=== PATIENT | male | born 1975 | race Hispanic/Latino ===

== ENCOUNTER 2020-09-16 04:49 | Inpatient (IN) | payer OTHER ==
[2020-09-16] VITALS (16 sets, daily range): BP systolic 100–135; BP diastolic 58–84
[~2020-09-16] VITALS: Ht 167.6 cm; Wt 92.1 kg
[2020-09-16] MEDS ORDERED: PANTOPRAZOLE 40 MG/VIAL IV SCH (05:30)
[2020-09-16] MEDS ORDERED: FAMOTIDINE/PF 20 MG/2 ML VIAL IV SCH (05:30)
[2020-09-16 06:05] LABS: ABG BASE EXCESS -0.1 mmol/L (-2.0-3.0); ABG HCO3 23.2 mmol/L (21.0-28.0); ABG OXYGEN SATURATION 95.3 % (95.0-99.0); ABG PCO2 34 mmHg (35-48)
[2020-09-16 06:26] LABS: BASOPHILS % (AUTO) 1.1 % (0.0-5.0); LYMPHOCYTES % (AUTO) 17.3 % (21.0-51.0); MEAN CORPUSCULAR HEMOGLOBIN 29.4 pg (27.0-33.0); MEAN CORPUSCULAR HGB CONC 33.7 g/dL (32.0-36.0); MEAN CORPUSCULAR VOLUME 87.4 fL (79-99); MONOCYTES % (AUTO) 7.2 % (3.0-13.0); NEUTROPHILS % (AUTO) 73.8 % (40.0-77.0); PLATELET COUNT (AUTO) 177 K/uL (130-400); RED BLOOD CELL COUNT(AUTO) 4.35 MIL/uL (4.50-6.20); RED CELL DISTRIBUTION WIDTH 13.5 % (11.0-15.5); WHITE BLOOD COUNT (AUTO) 5.4 K/uL (4.8-10.8)
[2020-09-16 06:45] LABS: ALBUMIN 3.4 g/dL (3.5-5.0); BILIRUBIN,DIRECT 0.1 mg/dL (0.0-0.3); BILIRUBIN,TOTAL 0.5 mg/dL (0.2-1.0); CREATININE 0.9 mg/dL (0.5-1.5); POTASSIUM 3.3 mmol/L (3.5-5.1); TOTAL PROTEIN, SERUM 7.4 g/dL (6.0-8.3)
[2020-09-16 07:32] LABS: ERYTHROCYTE SEDIMENTATION RATE 27 MM/HR (0-15)
[2020-09-16] MEDS ORDERED: CEFTRIAXONE SODIUM 1 GM IVP SCH (07:45)
[2020-09-16] MEDS ORDERED: AZITHROMYCIN 500MG+NS 250ML 250 ML IV SCH (07:45)
[2020-09-16] MEDS ORDERED: ACETAMINOPHEN 325 MG TAB PO PRN ×2 (08:15)
[2020-09-16] MEDS ORDERED: LACTULOSE 20 GM/30 ML UDCUP PO PRN (08:15)
[2020-09-16] MEDS ORDERED: ONDANSETRON HCL 4 MG/2 ML VIAL IV PRN (08:15)
[2020-09-16] MEDS ORDERED: ERGOCALCIFEROL (VITAMIN D2) 50,000 UNIT CAPSULE PO SCH (08:25)
[2020-09-16] MEDS ORDERED: PANTOPRAZOLE SODIUM 40 MG TABLET.DR PO SCH (08:26)
[2020-09-16] MEDS ORDERED: DOXYCYCLINE 100MG+NS 250ML IV SCH (08:30)
[2020-09-16] MEDS ORDERED: ALBUTEROL INHALER 90MCG/INH IH PRN (08:30)
[2020-09-16] MEDS: CEFTRIAXONE SODIUM 1 GM IVP SCH ×2 (08:30→19:39)
[2020-09-16] MEDS ORDERED: DEXAMETHASONE SOD PHOSPHATE 4 MG/ML 1ML VIAL IVP SCH (08:30)
[2020-09-16 08:36] LABS: CHOLESTEROL 136 mg/dL (<200); HDL CHOLESTEROL 34 mg/dL (29-71); LDL DIRECT 90 mg/dL (0-99); TRIGLYCERIDES 121 mg/dL (30-200)
[2020-09-16] MEDS ORDERED: ASCORBIC ACID 500 MG TAB PO SCH (09:00)
[2020-09-16] MEDS ORDERED: ZINC SULFATE 220 CAPSULE PO SCH (09:00)
[2020-09-16] MEDS ORDERED: ENOXAPARIN SODIUM 40 MG/0.4 ML SYRINGE SQ SCH (09:00)
[2020-09-16] MEDS ORDERED: SODIUM CHLORIDE 0.9% 250 ML IV SCH (10:00)
[2020-09-16] MEDS ORDERED: DOXYCYCLINE 100MG IVPB (VIAL) IV SCH (10:00)
[2020-09-16] MEDS ORDERED: DOXYCYCLINE 100MG+NS 250ML 250 ML IV SCH (11:10)
[2020-09-16] MEDS ORDERED: KCL 20 MEQ ERTAB PO PRN (12:00)
[2020-09-16] MEDS ORDERED: POTASSIUM CHLORIDE 10MEQ/100ML 100 ML IV PRN (12:00)
[2020-09-16] MEDS ORDERED: POTASSIUM CHLORIDE 10% ELIXIR 20 MEQ/15 ML UDCUP PO PRN (12:00)
[2020-09-16] MEDS ORDERED: LIDOCAINE HCL-MPF 1% 2ML VIAL IV PRN (12:00)
[2020-09-16] MEDS: PHARMACY COMMUNICATION**REMDESIVIR ORDER MISC SCH (13:00)
[2020-09-16 17:59] LABS: HEMATOCRIT 38.8 % (42-54)
[2020-09-16] MEDS: PANTOPRAZOLE 40 MG/VIAL IVP SCH (19:39)
[2020-09-16] MEDS: GUAIFENESIN-DM 200/20 MG 10 ML PO PRN (22:51)
[2020-09-17] VITALS (9 sets, daily range): BP systolic 93–109; BP diastolic 52–65
[2020-09-17 04:43] LABS: LYMPHOCYTES % (AUTO) 26.5 % (21.0-51.0); MEAN CORPUSCULAR HEMOGLOBIN 29.2 pg (27.0-33.0); MEAN CORPUSCULAR HGB CONC 32.8 g/dL (32.0-36.0); MEAN CORPUSCULAR VOLUME 89.3 fL (79-99); MONOCYTES % (AUTO) 12.6 % (3.0-13.0); NEUTROPHILS % (AUTO) 60.4 % (40.0-77.0); PLATELET COUNT (AUTO) 226 K/uL (130-400); RED BLOOD CELL COUNT(AUTO) 4.48 MIL/uL (4.50-6.20); RED CELL DISTRIBUTION WIDTH 13.5 % (11.0-15.5); WHITE BLOOD COUNT (AUTO) 3.8 K/uL (4.8-10.8)
[2020-09-17 05:07] LABS: ALBUMIN 3.4 g/dL (3.5-5.0); BILIRUBIN,TOTAL 0.5 mg/dL (0.2-1.0); CRP QUANTITATIVE 53.4 mg/L (0.00-9.0); MAGNESIUM 2.3 mg/dL (1.80-2.40); POTASSIUM 3.7 mmol/L (3.5-5.1); TOTAL PROTEIN, SERUM 7.6 g/dL (6.0-8.3)
[2020-09-17] MEDS: PHARMACY COMMUNICATION MISC SCH ×3 (08:15→20:15)
[2020-09-17] MEDS: PANTOPRAZOLE 40 MG/VIAL IVP SCH ×2 (08:37→20:17)
[2020-09-17] MEDS: CEFTRIAXONE SODIUM 1 GM IVP SCH (08:37)
[2020-09-17] MEDS: PHARMACY COMMUNICATION**REMDESIVIR ORDER MISC SCH (13:00)
[2020-09-17] MEDS ORDERED: ACETAMINOPHEN 325 MG TAB PO PRN (15:45)
[2020-09-17] MEDS: GUAIFENESIN-DM 200/20 MG 10 ML PO PRN (15:59)
[2020-09-17] MEDS ORDERED: PHARMACY COMMUNICATION MISC SCH (16:45)
[2020-09-17] MEDS ORDERED: COMPOUND IV REFRIGERATED 1 EACH IVSOLN MISC PRN (17:00)
[2020-09-17] MEDS: DEXAMETHASONE SOD PHOSPHATE 4 MG/ML 1ML VIAL IVP SCH (17:22)
[2020-09-17] MEDS: REMDESIVIR (EUA) 520 200 MG in SODIUM CHLORIDE 0.9% 250 ML IV SCH (17:27)
[2020-09-18] VITALS (11 sets, daily range): BP systolic 92–104; BP diastolic 42–65
[2020-09-18] MEDS: PHARMACY COMMUNICATION MISC SCH ×6 (00:15→19:46)
[2020-09-18 04:27] LABS: BASOPHILS % (AUTO) 0.2 % (0.0-5.0); HEMATOCRIT 37.2 % (42-54); LYMPHOCYTES % (AUTO) 13.8 % (21.0-51.0); MEAN CORPUSCULAR HEMOGLOBIN 28.8 pg (27.0-33.0); MEAN CORPUSCULAR HGB CONC 33.3 g/dL (32.0-36.0); MEAN CORPUSCULAR VOLUME 86.3 fL (79-99); MONOCYTES % (AUTO) 8.1 % (3.0-13.0); NEUTROPHILS % (AUTO) 77.4 % (40.0-77.0); PLATELET COUNT (AUTO) 250 K/uL (130-400); RED BLOOD CELL COUNT(AUTO) 4.31 MIL/uL (4.50-6.20); RED CELL DISTRIBUTION WIDTH 13.2 % (11.0-15.5); WHITE BLOOD COUNT (AUTO) 4.2 K/uL (4.8-10.8)
[2020-09-18 04:56] LABS: BILIRUBIN,DIRECT 0.1 mg/dL (0.0-0.3); BILIRUBIN,TOTAL 0.6 mg/dL (0.2-1.0); CREATININE 0.9 mg/dL (0.5-1.5); CRP QUANTITATIVE 77.7 mg/L (0.00-9.0); MAGNESIUM 2.1 mg/dL (1.80-2.40); POTASSIUM 3.8 mmol/L (3.5-5.1); TOTAL PROTEIN, SERUM 7.1 g/dL (6.0-8.3)
[2020-09-18] MEDS: REMDESIVIR LABS MISC SCH (05:22)
[2020-09-18] MEDS: PANTOPRAZOLE 40 MG/VIAL IVP SCH ×2 (08:52→20:39)
[2020-09-18] MEDS: PHARMACY COMMUNICATION**REMDESIVIR ORDER MISC SCH (13:00)
[2020-09-18] MEDS: BISACODYL 5 MG TABLET.DR PO SCH (13:22)
[2020-09-18] MEDS: DOCUSATE SODIUM 100 MG CAP PO SCH ×2 (13:22→20:39)
[2020-09-18] MEDS ORDERED: PHARMACY COMMUNICATION MISC SCH (14:30)
[2020-09-18] MEDS: ENOXAPARIN SODIUM 40 MG/0.4 ML SYRINGE SQ SCH (14:39)
[2020-09-18] MEDS: REMDESIVIR (EUA) 520 200 MG in SODIUM CHLORIDE 0.9% 250 ML IV SCH (18:00)
[2020-09-18] MEDS: DEXAMETHASONE SOD PHOSPHATE 4 MG/ML 1ML VIAL IVP SCH (18:13)
[2020-09-18] MEDS: REMDESIVIR (EUA) 520 100 MG in SODIUM CHLORIDE 0.9% 250 ML IV SCH (19:43)
[2020-09-18] MEDS: GUAIFENESIN-DM 200/20 MG 10 ML PO PRN (20:44)
[2020-09-18] MEDS ORDERED: SODIUM CHLORIDE 0.9% 100 ML ONE (23:46)
[2020-09-19] VITALS (9 sets, daily range): BP systolic 93–124; BP diastolic 53–78
[2020-09-19] MEDS: PHARMACY COMMUNICATION MISC SCH ×6 (00:15→20:15)
[2020-09-19 04:25] LABS: BASOPHILS % (AUTO) 0.3 % (0.0-5.0); LYMPHOCYTES % (AUTO) 18.4 % (21.0-51.0); MEAN CORPUSCULAR HEMOGLOBIN 29.3 pg (27.0-33.0); MEAN CORPUSCULAR HGB CONC 33.6 g/dL (32.0-36.0); MEAN CORPUSCULAR VOLUME 87.2 fL (79-99); MONOCYTES % (AUTO) 7.8 % (3.0-13.0); NEUTROPHILS % (AUTO) 72.9 % (40.0-77.0); PLATELET COUNT (AUTO) 268 K/uL (130-400); RED BLOOD CELL COUNT(AUTO) 4.13 MIL/uL (4.50-6.20); RED CELL DISTRIBUTION WIDTH 13.2 % (11.0-15.5); WHITE BLOOD COUNT (AUTO) 3.6 K/uL (4.8-10.8)
[2020-09-19 04:45] LABS: ALBUMIN 3.1 g/dL (3.5-5.0); BILIRUBIN,TOTAL 0.5 mg/dL (0.2-1.0); CREATININE 0.7 mg/dL (0.5-1.5); CRP QUANTITATIVE 50.3 mg/L (0.00-9.0); TOTAL PROTEIN, SERUM 7.2 g/dL (6.0-8.3)
[2020-09-19] MEDS: REMDESIVIR LABS MISC SCH (06:00)
[2020-09-19] MEDS: PANTOPRAZOLE 40 MG/VIAL IVP SCH ×2 (08:27→21:04)
[2020-09-19] MEDS: BISACODYL 5 MG TABLET.DR PO SCH ×2 (08:28→09:00)
[2020-09-19] MEDS: DOCUSATE SODIUM 100 MG CAP PO SCH ×3 (08:28→21:04)
[2020-09-19] MEDS: ENOXAPARIN SODIUM 40 MG/0.4 ML SYRINGE SQ SCH (08:28)
[2020-09-19] MEDS: PHARMACY COMMUNICATION**REMDESIVIR ORDER MISC SCH (13:00)
[2020-09-19] MEDS: DEXAMETHASONE SOD PHOSPHATE 4 MG/ML 1ML VIAL IVP SCH (16:57)
[2020-09-19] MEDS: REMDESIVIR (EUA) 520 100 MG in SODIUM CHLORIDE 0.9% 250 ML IV SCH (18:07)
[2020-09-19] MEDS: GUAIFENESIN-DM 200/20 MG 10 ML PO PRN (21:30)
[2020-09-20] VITALS (8 sets, daily range): BP systolic 89–115; BP diastolic 53–73
[2020-09-20] MEDS: PHARMACY COMMUNICATION MISC SCH ×6 (00:15→20:15)
[2020-09-20 04:16] LABS: CRP QUANTITATIVE 23.9 mg/L (0.00-9.0); MAGNESIUM 2.3 mg/dL (1.80-2.40)
[2020-09-20] MEDS: REMDESIVIR LABS MISC SCH (06:00)
[2020-09-20] MEDS: BISACODYL 5 MG TABLET.DR PO SCH ×2 (08:39→09:00)
[2020-09-20] MEDS: DOCUSATE SODIUM 100 MG CAP PO SCH ×3 (08:39→19:38)
[2020-09-20] MEDS: PANTOPRAZOLE 40 MG/VIAL IVP SCH ×2 (08:39→19:56)
[2020-09-20] MEDS: ENOXAPARIN SODIUM 40 MG/0.4 ML SYRINGE SQ SCH (08:40)
[2020-09-20] MEDS: PHARMACY COMMUNICATION**REMDESIVIR ORDER MISC SCH (13:00)
[2020-09-20] MEDS: DEXAMETHASONE SOD PHOSPHATE 4 MG/ML 1ML VIAL IVP SCH (17:43)
[2020-09-20] MEDS: REMDESIVIR (EUA) 520 100 MG in SODIUM CHLORIDE 0.9% 250 ML IV SCH (17:43)
[2020-09-21] VITALS (9 sets, daily range): BP systolic 92–118; BP diastolic 51–74
[2020-09-21] MEDS: PHARMACY COMMUNICATION MISC SCH ×6 (00:15→20:15)
[2020-09-21] MEDS: REMDESIVIR LABS MISC SCH (06:00)
[2020-09-21] MEDS: BISACODYL 5 MG TABLET.DR PO SCH (09:00)
[2020-09-21] MEDS: DOCUSATE SODIUM 100 MG CAP PO SCH ×2 (09:00→21:00)
[2020-09-21] MEDS: PANTOPRAZOLE 40 MG/VIAL IVP SCH ×2 (10:16→21:00)
[2020-09-21] MEDS: DEXAMETHASONE 4 MG TAB PO SCH (10:17)
[2020-09-21] MEDS: ENOXAPARIN SODIUM 40 MG/0.4 ML SYRINGE SQ SCH (10:18)
[2020-09-21] MEDS: PHARMACY COMMUNICATION**REMDESIVIR ORDER MISC SCH (13:00)
[2020-09-21] MEDS: REMDESIVIR (EUA) 520 100 MG in SODIUM CHLORIDE 0.9% 250 ML IV SCH (18:17)
[2020-09-22] MEDS: PHARMACY COMMUNICATION MISC SCH (00:15)
[2020-09-22 03:00] VITALS: BP 96/71
[2020-09-22 04:29] LABS: HEMATOCRIT 41.1 % (42-54); MEAN CORPUSCULAR HEMOGLOBIN 28.6 pg (27.0-33.0); MEAN CORPUSCULAR HGB CONC 32.8 g/dL (32.0-36.0); MEAN CORPUSCULAR VOLUME 87.1 fL (79-99); RED BLOOD CELL COUNT(AUTO) 4.72 MIL/uL (4.50-6.20); RED CELL DISTRIBUTION WIDTH 13.2 % (11.0-15.5); WHITE BLOOD COUNT (AUTO) 9.1 K/uL (4.8-10.8)
[2020-09-22 04:54] LABS: CREATININE 0.9 mg/dL (0.5-1.5); CRP QUANTITATIVE 7.2 mg/L (0.00-9.0)
[2020-09-22 08:00] VITALS: BP 102/72
[2020-09-22] MEDS: DEXAMETHASONE 4 MG TAB PO SCH (08:43)
[2020-09-22] MEDS: PANTOPRAZOLE 40 MG/VIAL IVP SCH (08:43)
[2020-09-22] MEDS: ENOXAPARIN SODIUM 40 MG/0.4 ML SYRINGE SQ SCH (08:46)
[2020-09-22] MEDS: BISACODYL 5 MG TABLET.DR PO SCH (09:00)
[2020-09-22] MEDS: DOCUSATE SODIUM 100 MG CAP PO SCH (09:00)
[2020-09-22] MEDS ORDERED: APIX2.5T PO (09:55)
[2020-09-22] MEDS ORDERED: DEXA6TAB PO (09:55)
[2020-09-22 12:00] VITALS: BP 99/73
[2020-09-22 16:00] VITALS: BP 108/73
== END 2020-09-22 17:01 | disposition home or self-care (01) | DRG 177 ==
LOC: EDH 04:49 → EDHIP 04:50 → 2BH 09:26
PROVIDERS: ADMIT Internal Medicine; ATTEND Internal Medicine
PROC: XW033E5 Introduction of Remdesivir Anti-infective into Peripheral Vein, Percutaneous Approach, New Technology Group 5 (ICD-10-PCS; principal; 2020-09-18)
PROC: XW13325 Transfusion of Convalescent Plasma (Nonautologous) into Peripheral Vein, Percutaneous Approach, New Technology Group 5 (ICD-10-PCS; 2020-09-18)
DX: U07.1 COVID-19 (principal); J12.82 Pneumonia due to coronavirus disease 2019; E87.1 Hypo-osmolality and hyponatremia; K92.2 Gastrointestinal hemorrhage, unspecified; D64.9 Anemia, unspecified; D72.810 Lymphocytopenia; E87.6 Hypokalemia
CPT/HCPCS: 36415; 36600; 71045; 71250; 80048; 80053; 80061; 80076; 82550; 82728; 82803; 83615; 83735; 84484; 85014; 85018; 85025; 85027; 85378; 85651; 86140; 86850; 86900; 86901; 86927; 87426; 87804; 93005; 94760; C9113; G0378; J0456; J0696; J1100; J1650; J2405; J3490; J7050; J8540

== ENCOUNTER → 2022-03-12 | Emergency (ER) | payer OTHER ==
[~2022-03-12] VITALS: Ht 170.2 cm; Wt 90.7 kg
[~2022-03-12] MED LIST: APIX2.5T PO; DEXA6TAB PO
[2022-03-12 13:51] VITALS: BP 118/77
== END | disposition home or self-care (01) ==
LOC: EDH 13:44
DX: G89.29 Other chronic pain (principal); M54.2 Cervicalgia; Z79.899 Other long term (current) drug therapy; Z79.01 Long term (current) use of anticoagulants

== ENCOUNTER → 2022-07-26 | Outpatient (CLI) | payer BC ==
[~2022-07-26] MED LIST changes: -APIX2.5T PO; +ASPI-1026 PO; +CYCL-309 PO; -DEXA6TAB PO; +DOCU-116 PO; +GABA100C PO; +HYDR-4060 PO
== END | disposition home or self-care (01) ==
LOC: RAH 15:00
PROVIDERS: ATTEND Nurse Practitioner
DX: S83.241A Other tear of medial meniscus, current injury, right knee, initial encounter (principal); M23.90 Unspecified internal derangement of unspecified knee; X58.XXXA Exposure to other specified factors, initial encounter; Y93.89 Activity, other specified; Y92.89 Other specified places as the place of occurrence of the external cause; Y99.8 Other external cause status
CPT/HCPCS: 73721

== ENCOUNTER → 2022-08-04 | Outpatient (CLI) | payer BC ==
[2022-08-04 13:51] LABS: SPECIMENTYPE,BODY FLUID SYNOVIAL
[2022-08-04 13:51] LABS: APPEARANCE BODY FLUID CLOUDY (CLEAR); COLOR,BODY FLUID RED (LT YELLOW); SPECIMENTYPE,BODY FLUID SYNOVIAL; TOTAL VOLUME,BODY FLUID 2 mL
[2022-08-04 13:52] LABS: APPEARANCE BODY FLUID CLOUDY (CLEAR); COLOR,BODY FLUID RED (LT YELLOW); TOTAL VOLUME,BODY FLUID 1 mL
[2022-08-04 17:06] LABS: BODY FLUID WBC 33 /cu. mm.
[2022-08-04 17:07] LABS: BODY FLUID RBC 34550 /cu. mm.
[2022-08-04 17:26] LABS: BF LYMPHOCYTE 12 %; BF MONOCYTE 7 %
[2022-08-04 18:01] LABS: BODY FLUID RBC 6500 /cu. mm.; BODY FLUID WBC 33 /cu. mm.
[2022-08-04 18:13] LABS: BF LYMPHOCYTE 3 %; BF MONOCYTE 3 %
[2022-08-04 20:46] LABS: CRYSTALS, SYNOVIAL FLUID None Seen
[2022-08-04 20:48] LABS: CRYSTALS, SYNOVIAL FLUID None Seen
== END | disposition home or self-care (01) ==
LOC: LAB 12:17
PROVIDERS: ATTEND Nurse Practitioner
DX: M25.462 Effusion, left knee (principal); M25.461 Effusion, right knee
CPT/HCPCS: 87070; 87076; 87205; 89051; 89060

== ENCOUNTER → 2022-08-10 | Outpatient (CLI) | payer BC | END | disposition home or self-care (01) | LOC: LAB 15:18 | PROVIDERS: ATTEND Student in an Organized Health Care Education/Training Program | DX: M25.461 Effusion, right knee (principal); M25.462 Effusion, left knee | CPT/HCPCS: 36415; 84550; 86431 ==

== ENCOUNTER → 2024-07-25 | Emergency (ER) | payer BC ==
[~2024-07-25] VITALS: Ht 170.2 cm; Wt 85.3 kg
[~2024-07-25] MED LIST changes: +CYCL10TA16 PO; +KETO10TA2 PO
--- NOTE | 2024-07-25 13:27 | HMCIMG ---
LUMBAR SPINE RADIOGRAPHS - 2-3 VIEWS INDICATION: Persistent low back pain COMPARISON: None FINDINGS: AP, lateral, and coned-down lateral views. Normal lordotic curvature of the lumbar spine is maintained. Five nonrib-bearing lumbar vertebral bodies are noted. No acute fracture or subluxation identified. Vertebral body heights are well-maintained. Moderate disc height loss at the L5-S1 level. Mild facet disease at the L5-S1 level greater than L4-L5 level. Multilevel mild anterior endplate osteophytic spurring. IMPRESSION: No fracture or subluxation identified.
--- NOTE | 2024-07-25 13:27 | HMCIMG ---
LEFT HIP, INCLUDING AP PELVIS, RADIOGRAPHS -4 VIEWS INDICATION: Persistent low back pain COMPARISON: None FINDINGS: No acute fracture or subluxation identified. Left femoral head is well formed without osteochondral erosion or radiographic evidence for avascular necrosis. Total right hip prosthesis appears normal. IMPRESSION: No evidence for fracture or dislocation.
--- NOTE | 2024-07-25 13:51 | HMCIMG ---
ULTRASOUND VENOUS DOPPLER, BILATERAL LOWER EXTREMITIES INDICATION: Bilateral lower extremity pain and swelling TECHNIQUE: Routine grayscale and color Doppler ultrasound of the bilateral lower extremity veins performed. COMPARISON: No priors. FINDINGS: The demonstrated veins of the bilateral lower extremity including the common femoral vein, femoral vein, and popliteal vein are associated with normal compressibility, augmentation, and flow. Normal respiratory variation was identified. No evidence for echogenic intraluminal thrombus formation. IMPRESSION: No sonographic evidence for deep venous thrombosis within the bilateral lower extremity veins.
--- NOTE | 2024-07-25 14:08 | ERN ---
General Chief Complaint: Lower Extremity Pain/Injury Stated Complaint: [facility]FERRED [facility] RIGHT Time Seen by MD: 11:40 Time Seen by Midlevel: 11:40 Source: patient History of Present Illness Initial Comments Patient is a 48-year-old male with a past medical history of DVTs presenting to the emergency department for evaluation of low back pain that radiates down his left leg. He was seen at [facility] and was sent over to rule out a blood clot. The patient states his pain started four days ago. It starts at his left lower lumbar region and radiates down his left leg. Denies any focal weakness. Denies any urinary/bowel incontinence, denies any numbness or tingling to his lower extremities. Allergies: Coded Allergies: No Known Drug Allergies (Unverified Allergy, Unknown, 09/16/20) Home Meds Active Scripts Docusate Sodium (Colace) 100 Mg Capsule, 100 MG PO BID PRN for CONSTIPATION for 30 Days, #60 CAP 0 Refills Prov:PERCY MARY MD 06/03/22 Hydrocodone/Acetaminophen (Hydrocodon-Acetaminophen 5-325) 1 Each Tablet, 1-2 TAB PO Q6H PRN for MODERATE/SEVERE PAIN LEVEL, #56 TAB 0 Refills Prov:PERCY MARY MD 06/03/22 Gabapentin (Neurontin) 100 Mg Capsule, 100 MG PO TID, #90 CAP 0 Refills Prov:PERCY MARY MD 06/03/22 Cyclobenzaprine HCl (Cyclobenzaprine HCl) 10 Mg Tablet, 5 MG PO Q8H PRN for MUSCLE SPASMS, #45 TAB 0 Refills Prov:PERCY MARY MD 06/03/22 Aspirin (Aspirin) 325 Mg Tablet, 325 MG PO DAILY, #30 TAB 0 Refills Prov:PERCY MARY MD 06/03/22 Past Medical History Past Medical History: No Pertinent History Past Surgical History: Other Surgical History Other: R HIP REPLACEMENT, HERNIA REPAIR Social History Social History: Negative ROS Dictation CONSTITUTIONAL: Negative except for HPI HEAD/FACE: Negative except for HPI EENT: Negative except for HPI RESPIRATORY: Negative except for HPI GASTROINTESTINAL/ABDOMINAL: Negative except for HPI GENITOURINARY: Negative except for HPI MUSCULOSKELETAL: Negative except for HPI INTEGUMENTARY: Negative except for HPI NEUROLOGICAL/PSYCH: Negative except for HPI HEMATOLOGIC/LYMPHATIC: Negative except for HPI All Systems Negative, Except as noted above. 13 point review of systems assessed and all negative except for above. Physical Exam Physical Exam Dictation Vital Signs reviewed General Appearance: Alert, oriented x 3, no acute distress, well developed, nourished. Head and Face: non-traumatic. Eyes: PERRL, pink conjunctivas, eyelid no trauma, anterior chamber with arcus senilis. Ears: Pinnas intact and no signs of trauma or erythema ear canals clear and no discharge TM no erythema Nose: No discharge, no bleeding. Oropharynx: Mouth normal, tongue pink, pharynx clear,no erythema, tonsils no exudates, no abscesses noted, mucous membrane moist Neck: Supple, non-tender, no thyromegaly, no masses, no JVD, no bruits Breast:Deferred Chest:No tenderness, no crepitus, no paradoxical movement, no retractions Lungs:Clear, well-ventilated, symmetric, no rales, no wheezing, no rhonchi, no stridor, good breath sounds bilaterally Heart: Regular rate, regular rhythm, no murmur, no gallops Vascular: no peripheral edema, Abdomen: Soft, positive bowel sounds, nondistended, no guarding, nontender, no rebound, no masses no hepatomegaly, no splenomegaly, no Andujar's sign, no hernias. Rectal: Deferred Genital: Deferred Neurological: Normal speech, motor function intact, sensory function intact Musculoskeletal: Neck nontender, full range of motion, back nontender, full range of motion, Extremities: nontender, full range of motion Skin: Color pink, dry, no turgor, no rash, no lacerations, no abrasions, no contusions. Lymphatic: Deferred MDM MDM: Patient is a 48-year-old male with a past medical history of DVTs presenting to the emergency department for evaluation of low back pain that radiates down his left leg. He was seen at [facility] and was sent over to rule out a blood clot. The patient states his pain started four days ago. It starts at his left lower lumbar region and radiates down his left leg. Denies any focal weakness. Denies any urinary/bowel incontinence, denies any numbness or tingling to his lower extremities. On physical examination the patient was in no acute distress. Patient has a negative straight leg test. There is no Differential diagnosis: There are no social concerns with this patient. Prescription drug management Prescriptions will include: Medical management and examination interpretation discussions were had by me with other qualified healthcare professionals as indicated for the patient's car e. ED Course Orders Procedure Category Date Status Time Lumbar Spine 2-3vws RAD 07/25/24 Resulted 12:22 Hip Unilat 2-3vw Left RAD 07/25/24 Resulted 12:22 Us Venous Doppler US 07/25/24 Resulted Bilateral 13:12 Vital Signs Date Time Temp Pulse Resp B/P (MAP) Pulse Ox O2 Delivery O2 Flow Rate FiO2 07/25/24 12:09 97.9 60 18 112/79 99 Room Air* 0 21 07/25/24 11:27 98.4 62 16 115/73 97 Room Air 0 DX & DISP Disposition: Discharge Departure Impression: Primary Impression: Musculoskeletal pain Condition: Stable Scripts Cyclobenzaprine HCl (Flexeril) 10 Mg Tab 10 MG PO BID for muscle sstiffness for 5 Days, #10 TAB 0 Refills Prov: DORINDA BUSTAMANTE 07/25/24 Ketorolac Tromethamine (Ketorolac Tromethamine) 10 Mg Tablet 1 TAB PO TID for pain for 5 Days, #15 TAB 0 Refills Prov: DORINDA BUSTAMANTE 07/25/24 Additional Instructions: Your bilateral leg ultrasound does not show any evidence of a blood clot. Your lower back x-ray is normal. Your pelvis x-ray is normal. Your left hip is normal. There was no evidence of an acute fracture or dislocation. We will treat as musculoskeletal pain/sciatica in the meantime. Follow up with your primary care doctor. If symptoms persist you may need an MRI for further evaluation. Referrals: MARIE ARMSTRONG MD (PCP) Time of Disposition: 14:04 I have reviewed the case, and I agree with, Diagnosis and Plan I performed the substantive portion of the visit. I have reviewed and personally made and approve the management plan that is documented in the note by myself or the CUONG. I acknowledge for responsibility for the patient's management plan. DORINDA BUSTAMANTE Jul 25, 2024 14:08
[2024-07-25 14:34] VITALS: BP 115/69; PULSE 62; RESP 18; TEMP 97.9; O2SAT 98
== END ==
LOC: EDH 11:11
DX: M79.10 Myalgia, unspecified site (principal); M79.662 Pain in left lower leg; M79.661 Pain in right lower leg; Z79.82 Long term (current) use of aspirin; Z79.899 Other long term (current) drug therapy; Z86.718 Personal history of other venous thrombosis and embolism; Z96.641 Presence of right artificial hip joint; Z98.890 Other specified postprocedural states
CPT/HCPCS: 72100; 73502; 93970; 99284